=== PATIENT | female | born 1945 | race Hispanic/Latino ===

== ENCOUNTER 2017-12-10 21:18 | Observation (INO) | payer MEDICARE, BC ==
--- NOTE | 2017-12-10 22:17 | ED PDOC ---
Arrival/HPI - General Chief Complaint: Abdominal Pain Time Seen by Provider: 12/10/17 21:41 Historian: Patient - History of Present Illness Narrative History of Present Illness (Text): 12/10/17 22:12 72-year-old female presents today as a transfer from the [facility] emergency room for chest pain and pancreatitis. Patient states he's been having left-sided upper abdominal pain for about a month. Patient states over the past few days the pain seems to have increased. Patient states she's been belching a lot. Patient states today she became nervous because she felt very nauseous as if she was going to vomit. She denies dizziness or weakness. Patient is complaining of a vague pressure like sensation in the chest. She denies urinary symptoms. Denies back pain. Denies fevers or chills. No other complaints Symptom Onset: Gradual Symptom Course: Worsening Quality: Aching, Tightness, Gas Like Severity Level: 3, 5 Past Medical History - Provider Review Nursing Documentation Reviewed: Yes - Travel History Have you recently traveled outside [place] w/in the past 3 mons?: No - Infectious Disease Hx of Infectious Diseases: None - Reproductive Menopause: Yes - HEENT Hx Glaucoma: Yes - Endocrine/Metabolic Hx Diabetes Mellitus Type 2: Yes - Psychiatric Hx Substance Use: No - Anesthesia Hx Anesthesia: No Hx Anesthesia Reactions: No Family/Social History - Physician Review Nursing Documentation Reviewed: Yes Family/Social History: Unknown Family HX Smoking Status: Unknown If Ever Smoked Hx Alcohol Use: No Hx Substance Use: No Allergies/Home Meds Allergies/Adverse Reactions: Allergies No Known Allergies Allergy (Verified 12/10/17 21:38) Home Medications: Home Meds Medication Instructions Recorded Confirmed Aspirin [Ecotrin] 81 mg PO DAILY 12/10/17 12/10/17 Brimonidine Tartrate [Alphagan P 5 ml OD DAILY 12/10/17 12/10/17 0.1 % Ophth] Brimonidine Tartrate/Timolol 10 ml OD DAILY 12/10/17 12/10/17 [Combigan 0.2%-0.5% Eye Drops] Cholecalciferol (Vitamin D3) 1 tab PO DAILY 12/10/17 12/10/17 [Vitamin D3] Colesevelam HCl [Welchol] 625 mg PO BID 12/10/17 12/10/17 Esomeprazole Magnesium [Nexium 20 mg PO DAILY 12/10/17 12/10/17 24Hr] Ezetimibe [Ezetimibe] 10 mg PO DAILY 12/10/17 12/10/17 Glyburide/Metformin HCl 1 tab PO BID 12/10/17 12/10/17 [Glyburide-Metformin 5-500 mg] Latanoprost [Xalatan] 2.5 ml EACHEYE DAILY 12/10/17 12/10/17 Levothyroxine [Synthroid] 25 mg PO DAILY 12/10/17 12/10/17 Olmesartan [BenicarNf] 20 mg PO DAILY 12/10/17 12/10/17 l-Mefol/A-Cyst/Meb12/Algal Oil 1 tab PO DAILY 12/10/17 12/10/17 [Cerefolin Nac Caplet] Review of Systems - Review of Systems Constitutional: absent: Fatigue, Fevers ENT: absent: Sore Throat Respiratory: absent: SOB, Cough Cardiovascular: Chest Pain. absent: Palpitations Gastrointestinal: Abdominal Pain, Nausea. absent: Constipation, Diarrhea, Vomiting Genitourinary Female: absent: Dysuria, Frequency, Hematuria Musculoskeletal: absent: Arthralgias, Back Pain, Neck Pain Skin: absent: Rash, Pruritis Neurological: absent: Headache, Dizziness Psychiatric: absent: Anxiety, Depression, Suicidal Ideation Physical Exam Vital Signs Reviewed: Yes Vital Signs Temp Pulse Resp BP Pulse Ox 12/10/17 23:54 70 18 145/70 100 12/10/17 21:23 97.6 F 68 18 138/66 100 Temperature: Afebrile Blood Pressure: Normal Pulse: Regular Respiratory Rate: Normal Appearance: Positive for: Well-Appearing, Non-Toxic, Comfortable Pain Distress: None Mental Status: Positive for: Alert and Oriented X 3 - Systems Exam Head: Present: Atraumatic Mouth: Present: Moist Mucous Membranes Neck: Present: Normal Range of Motion Respiratory/Chest: Present: Clear to Auscultation, Good Air Exchange. No: Respiratory Distress, Accessory Muscle Use Cardiovascular: Present: Regular Rate and Rhythm, Normal S1, S2. No: Murmurs Abdomen: Present: Tenderness (+ epigastric and LUQ tenderness, minimal llq tenderness), Normal Bowel Sounds. No: Distention, Peritoneal Signs, Rebound, Guarding, McBurney's Point Tender Back: Present: Normal Inspection. No: CVA Tenderness, Midline Tenderness, Paraspinal Tenderness Upper Extremity: Present: Normal ROM Lower Extremity: Present: Normal ROM Neurological: Present: GCS=15 Skin: Present: Warm, Dry, Normal Color. No: Rashes Psychiatric: Present: Alert, Oriented x 3 Medical Decision Making ED Course and Treatment: 12/10/17 22:20 Patient is nontoxic well appearing with stable vitals. pt transferred from [facility]. CBC wnl CMP wnl Amylase wnl Lipase 281 trop: 0.01 Urinalysis: trace leukocytes CAT scan: FINDINGS: Questionable trace prominence of the intrahepatic biliary ducts. Correlate with laboratory values if clinically indicated. The spleen is normal. The pancreas is normal. No gallstones. There is a 1.5 cm low-attenuation lesion in the upper right kidney with Hounsfield units slightly greater than expected for a simple cyst. Short term followup ultrasound is recommended to assess for stability assuming there are no priors. Punctate low attenuation upper pole left kidney. Bilateral adrenal gland thickening with areas of low attenuation possible adenomas. Definitive characterization could be performed with MRI if not done previously. Small hiatal hernia. The right colon is distended with stool consistent with constipation. A normal appendix is identified [id number], coronal images 45 - 63. No aortic aneurysm or dissection. Asymmetry of breast tissue, more prominent on the left. Recommend correlation with mammography. Grade 1 spondylolisthesis L4-5. IMPRESSION: Right-sided constipation. Non acute findings as described in the body of the report. Patient reassessment: pt is non toxic well appearing; resting comfortably in er ; pt had LIpase of 761 at [facility], repeat lipase 281 pt given pepcid IV and asa 244 po as she was given 81mg in ER. Discussed all results with patient in depth dr. falk discussed case with dr. davidson; will admit observational status to tele for chest pain and abdominal pain. will consult dr. walton and dr. valenzuela. Impression: chest pain, abdominal pain admit tele obs. - Lab Interpretations Lab Results: 12/10/17 22:04 12/10/17 22:04 Lab Results 12/10/17 22:58: Urine Color Straw, Urine Appearance Clear, Urine pH 6.5, Ur Specific [place] <= 1.005, Urine Protein Negative, Urine Glucose (UA) Negative, Urine Ketones Negative, Urine Blood Negative, Urine Nitrate Negative, Urine Bilirubin Negative, Urine Urobilinogen 0.2, Ur Leukocyte Esterase Trace H, Urine RBC 0 - 2, Urine WBC 0 - 2, Ur Epithelial Cells 0 - 2 12/10/17 22:26: pO2 71 H, VBG pH 7.38, VBG pCO2 47.0, VBG HCO3 27.8, VBG Total CO2 29.2 H, VBG O2 Sat (Calc) 97.6 H, VBG Base Excess 2.0, VBG Potassium 3.6, Glucose 81, Lactate 0.6 L, FiO2 21.0, Sodium 138.0, Chloride 108.0 H, Venous Blood Potassium 3.6 12/10/17 22:04: WBC 8.8 D, RBC 4.01, Hgb 11.3 L, Hct 34.4 L, MCV 85.8, MCH 28.2 , MCHC 32.8, RDW 13.0, Plt Count 284, MPV 9.1, Gran % 69.6 H, Lymph % (Auto) 21.6 L, [place] % (Auto) 7.6 H, Eos % (Auto) 1.0 L, Baso % (Auto) 0.2, Gran # 6.15 , Lymph # (Auto) 1.9, [place] # (Auto) 0.7 H, Eos # (Auto) 0.1, Baso # (Auto) 0.02 12/10/17 22:04: Sodium 140, Potassium 3.9, Chloride 105, Carbon Dioxide 27, Anion Gap 12, BUN 15, Creatinine 0.7, Est GFR ( Amer) > 60, Est GFR (Non- Af Amer) > 60, Random Glucose 79, Calcium 9.7, Total Bilirubin 1.0, AST 36, ALT 39, Alkaline Phosphatase 38, Lactate Dehydrogenase 571, Total Creatine Kinase 689 H, CK-MB (CK-2) 4.5 H, CK-MB (CK-2) % Cancelled, Troponin I < 0.01, Total Protein 6.9, Albumin 4.1, Globulin 2.9, Albumin/Globulin Ratio 1.4, Amylase 145 H, Lipase 218 - RAD Interpretation Radiology Orders: 12/10/17 22:18 ABD & PELVIS IV CONTRAST ONLY [CT] Stat - Medication Orders Current Medication Orders: Discontinued Medications Aspirin (Aspirin Chewable) 244 mg PO STAT STA Stop: 12/11/17 01:09 Last Admin: 12/11/17 01:29 Dose: 244 mg Famotidine (Pepcid) 20 mg IVP STAT STA Stop: 12/11/17 01:10 Last Admin: 12/11/17 01:28 Dose: 20 mg IVP Administration Document 12/11/17 01:28 KEL (Rec: 12/11/17 01:28 KEL [id number]) Charges for Administration # of IVP Administrations 1 Disposition/Present on Arrival - Present on Arrival Any Indicators Present on Arrival: No History of DVT/PE: No History of Uncontrolled Diabetes: No Urinary Catheter: No History of Decub. Ulcer: No History Surgical Site Infection Following: None - Disposition Have Diagnosis and Disposition been Completed?: Yes Diagnosis: Chest pain, Abdominal pain Disposition: HOSPITALIZED Disposition Time: 00:59 Patient Plan: Observation, Telemetry Patient Problems: Current Active Problems Problem Status Onset Abdominal pain Acute Chest pain Acute Condition: FAIR
[2017-12-10 22:23] LABS: BASO # 0.02 K/mm3 (0.0-2.0); BASO % 0.2 % (0.0-3.0); EOS # 0.1 (0.0-0.7); GRAN # 6.15 (1.4-6.5); GRAN % 69.6 % (50.0-68.0); HEMOGLOBIN 11.3 g/dL (12.0-16.0); LYMPH # 1.9 (1.2-3.4); LYMPH % 21.6 % (22.0-35.0); MEAN CELL VOLUME 85.8 fl (80.0-105.0); MEAN CORPUSCULAR HEMOGLOBIN 28.2 pg (25.0-35.0); MEAN CORPUSCULAR HGB CONC 32.8 g/dl (31.0-37.0); MEAN PLATELET VOLUME 9.1 fl (7.0-11.0); MONO # 0.7 (0.1-0.6); MONO % 7.6 % (1.0-6.0); RBC 4.01 10^6/uL (3.5-6.1); WHITE BLOOD COUNT 8.8 10^3/ul (4.5-11.0)
[2017-12-10 22:28] LABS: ALB/GLOB RATIO 1.4 (1.1-1.8); ALBUMIN 4.1 g/dL (3.0-4.8); ALT/SGPT 39 U/L (7-56); AMYLASE 145 U/L (35-125); AST/SGOT 36 U/L (14-36); BLOOD UREA NITROGEN 15 mg/dL (7-21); CALCIUM 9.7 mg/dL (8.4-10.5); GFR AFRICAN-AMERICAN > 60; GFR NON-AFRICAN AMERICAN > 60; LIPASE 218 U/L (23-300)
[2017-12-10 22:39] LABS: TROPONIN I < 0.01 ng/mL
[2017-12-10 22:45] LABS: VENOUS BLOOD GAS PO2 71 mm/Hg (30-55); VENOUS BLOOD PH 7.38 (7.32-7.43)
[2017-12-10 22:55] LABS: CK-MB 4.5 ng/mL (0.0-3.6)
[2017-12-10] MEDS ORDERED: Iohexol 350 MG/100 ML VIAL ONE (22:57)
[2017-12-10 23:13] LABS: PH,URINE 6.5 (4.7-8.0); URINE BILIRUBIN NEGATIVE (NEGATIVE); URINE BLOOD NEGATIVE (NEGATIVE); URINE GLUCOSE (UA) NEGATIVE (NEGATIVE); URINE LEUKOCYTE ESTERASE TRACE Leu/uL (NEGATIVE); URINE PROTEIN NEGATIVE mg/dL (<30 mg/dL); URINE UROBILINOGEN 0.2 E.U./dL (<1 E.U./dL)
[2017-12-10 23:15] LABS: URINE APPEARANCE CLEAR (CLEAR); URINE COLOR STRAW (YELLOW)
[2017-12-10 23:26] LABS: URINE EPITHELIAL CELLS 0 - 2 /hpf (0-5); URINE RBC 0 - 2 /hpf (0-2); URINE WBC 0 - 2 /hpf (0-6)
--- NOTE | 2017-12-11 00:18 | CT ---
EXAM: CT Abdomen and Pelvis With Intravenous Contrast EXAM DATE/TIME: 12/10/2017 10:18 PM CLINICAL HISTORY: 72 years old, female; Pain; Abdominal pain; Localized; Lower; Additional info: Abd pain TECHNIQUE: Axial computed tomography images of the abdomen and pelvis with intravenous contrast. All CT scans at this facility use one or more dose reduction techniques, viz.: automated exposure control; ma/kV adjustment per patient size (including targeted exams where dose is matched to indication; i.e. head); or iterative reconstruction technique. Coronal and sagittal reformatted images were created and reviewed. CONTRAST: 96 mL of administered intravenously. COMPARISON: No relevant prior studies available. FINDINGS: Questionable trace prominence of the intrahepatic biliary ducts. Correlate with laboratory values if clinically indicated. The spleen is normal. The pancreas is normal. No gallstones. There is a 1.5 cm low-attenuation lesion in the upper right kidney with Hounsfield units slightly greater than expected for a simple cyst. Short term followup ultrasound is recommended to assess for stability assuming there are no priors. Punctate low attenuation upper pole left kidney. Bilateral adrenal gland thickening with areas of low attenuation possible adenomas. Definitive characterization could be performed with MRI if not done previously. Small hiatal hernia. The right colon is distended with stool consistent with constipation. A normal appendix is identified [id number], coronal images 45 - 63. No aortic aneurysm or dissection. Asymmetry of breast tissue, more prominent on the left. Recommend correlation with mammography. Grade 1 spondylolisthesis L4-5. IMPRESSION: Right-sided constipation. Non acute findings as described in the body of the report.
[2017-12-11] MEDS: Levothyroxine 25 MCG TAB PO SCH (06:51)
[2017-12-11 08:13] LABS: ALB/GLOB RATIO 1.4 (1.1-1.8); ALBUMIN 3.8 g/dL (3.0-4.8); ALT/SGPT 42 U/L (7-56); AMYLASE 98 U/L (35-125); AST/SGOT 55 U/L (14-36); BLOOD UREA NITROGEN 13 mg/dL (7-21); CALCIUM 9.3 mg/dL (8.4-10.5); GFR AFRICAN-AMERICAN > 60; GFR NON-AFRICAN AMERICAN > 60; LIPASE 108 U/L (23-300)
[2017-12-11 09:38] LABS: TROPONIN I < 0.01 ng/mL
[2017-12-11] MEDS ORDERED: TIMOLOL OD SCH ×2 (10:00→12:41)
[2017-12-11] MEDS ORDERED: BRIMONIDINE TARTRATE OD SCH ×2 (10:00→12:41)
[2017-12-11 10:42] LABS: CK MB% 0.1 % (2.5-3.0); CK-MB 5.8 ng/mL (0.0-3.6)
[2017-12-11] MEDS: POLYETHYLENE GLYCOL 3350 17 GM/Dose PACKET PO SCH ×2 (12:08→17:49)
[2017-12-11] MEDS: BRIMONIDINE TARTRATE OD SCH (13:35)
--- NOTE | 2017-12-11 15:32 | HP ---
PHYSICAL EXAMINATION: VITAL SIGNS: Temperature is 98, pulse of 69, blood pressure 108/50, respirations 19, and O2 saturation 97%. GENERAL: The patient lying in bed, uncomfortable, and in no acute distress. HEENT: Atraumatic and normocephalic. Anicteric sclerae. Moist mucosa. [place] conjunctivae. No oral lesions. NECK: No JVD, anterior and posterior adenopathy, thyromegaly, or bruits. CARDIOVASCULAR: S1 and S2 regular. No murmur, rubs, or gallop. LUNGS: Clear to auscultation bilaterally. No wheezes, rales, or rhonchi. ABDOMEN: Bowel sounds are positive. Soft, nontender and nondistended. No hepatosplenomegaly. No rebound and no guarding EXTREMITIES: No cyanosis, clubbing, or edema. NEUROLOGIC: No facial asymmetry. Tongue is midline. No uvula deviation. Power is 5/5 upper extremity and lower extremity. Sensation intact in upper extremity and lower extremity. PSYCHIATRIC: She is awake, alert and oriented x3. No anxiety or depression. She has normal affect. GENITOURINARY: No CVA tenderness. VASCULAR: 2+ pulses in the carotid pulses and pedal pulses. SKIN: No erythema or nodules SPINE: Shows normal curvature. LABORATORY DATA: White count of 8.8, hemoglobin is 11.3, and platelet count is 284. She has an VBG shows a pH of 7.38 with a PaO2 of 71, pCO2 of 47. Chemistry shows sodium 140, potassium 3.9. Creatinine 0.7. The patient has an albumin of 4.1, lipase is 218. Urine shows blood is negative, nitrites are negative, bilirubin is negative. CT of the abdomen done shows right-sided constipation, no acute findings. ASSESSMENT: 1. Pancreatitis. 2. Constipation. 3. Right 1.5 cm kidney lesion, possibly cyst. 4. Diabetes type 2. 5. Hypertension. PLAN: The patient is currently comfortable. She did have an elevated lipase in the [facility]. The patient was given IV Pepcid. Repeat lipase is improved. The patient's initial lipase was 761. The patient is going to continue with aspirin. She is going to continue with her eyedrops. She is on Zetia for her dyslipidemia. She is currently n.p.o. I will advance her diet to a liquid diet to see if she can tolerate. I will also get evaluation by Dr. Saunders and also cardiac evaluation by Dr. Smith. The patient's initial troponin was negative. Repeat troponin has been ordered. Pepe Brian MD
--- NOTE | 2017-12-11 17:50 | CARD ---
APPROVED REPORT EKG Measurement Heart [id number] <Conclusion> Normal sinus rhythm Normal ECG
--- NOTE | 2017-12-11 19:01 | CON ---
DATE: 12/11/2017 INDICATIONS: Abdominal, midepigastric and chest pain. HISTORY OF PRESENT ILLNESS: This is a 72-year-old woman who was admitted to the emergency room after she initially presented at the [facility] Emergency Room with midepigastric pain, chest pain, abdominal pain. Some symptoms have been present for several weeks to a month, they were getting worse. There was increased nausea, and belching. She felt as if she would vomit. She came to the emergency room for evaluation. She does not describe exertional chest pain. There is some shortness of breath at times. There was no orthopnea, PND, syncope, presyncope, lightheadedness, dizziness, vertigo, palpitation, edema, claudication, fever, chills, rigors, sweats, cough, sputum production, hemoptysis, constipation or melena. PAST MEDICAL HISTORY: Notable for diabetes, hyperlipidemia, glaucoma, cataracts, hypothyroidism, but no rheumatic fever, myocardial infarction, angina, congestive heart failure, arrhythmia, stroke, TIA, hypertension or gout. MEDICATIONS: At the time of admission include Alphagan, brimonidine eye drops, vitamin D, WelChol, Nexium, Zetia, glyburide and metformin, Xalatan, Synthroid, olmesartan. ALLERGIES: THERE ARE NO KNOWN MEDICATION ALLERGIES. SOCIAL HISTORY: She lives at home. She does not currently smoke. She does not drink alcohol. FAMILY HISTORY: Noncontributory. REVIEW OF SYSTEMS: A 10-point review of systems otherwise unremarkable except as noted above. PHYSICAL EXAMINATION: GENERAL: She is a well-developed woman, lying in bed on telemetry, no acute distress. VITAL SIGNS: Unremarkable. She is in sinus rhythm 69 beats per minute. Afebrile, 108/50, respirations 18 to 19, O2 sat 97 to 100% on room air. HEENT: Reveals no neck vein distention, thyromegaly, carotid bruit. Mucous membranes moist. Conjunctivae pink. NECK: Supple. HEART: Reveal normal first and second heart sounds. LUNGS: Lung dia clear. ABDOMEN: Soft, bowel sounds present. No mass, organomegaly, tenderness, rebound, guarding, CVA tenderness, no palpable abdominal aortic aneurysm. EXTREMITIES: Reveal no cyanosis, clubbing, or edema. NEUROLOGICAL: Awake, alert, and oriented. PSYCHIATRIC: Normal as to mood and affect. SKIN: Warm and dry. No rash or cellulitis. LABORATORY AND IMAGING: EKG demonstrates regular sinus rhythm, right ventricular conduction delay, leftward axis, mild nonspecific ST-wave changes. A PA and lateral chest film is not yet interpreted, no evidence of congestive heart failure, infiltrate or effusion by my reading. Normal cardiac silhouette by my reading. Abdominal and pelvis CT scan noted, no acute findings, etc. Hemoglobin 11.3, hematocrit 34.4, white blood cell count normal, platelet count normal. Blood gas is noted. Electrolytes: BUN, creatinine, blood sugar unremarkable. LFTs unremarkable. CK elevated at 689. Troponin less than 0.01, amylase 145, repeat 98, lipase 218, repeat 108. Urinalysis unremarkable. IMPRESSION: Dulce Torres is a 72-year-old woman with midepigastric and chest discomfort, belching, nausea, and symptoms which have been present for almost a month. We will get serial EKG's and enzymes to rule out myocardial infarction. I will repeat her EKG and order an echocardiogram. She will have a GI evaluation probably to include upper endoscopy. We will continue her usual medications; she is getting aspirin, Pepcid, Synthroid, Zetia. We will check stool for occult blood. She can be out of bed to a chair. I will follow along with you. I will make additional recommendations based on her clinical course. If no GI cause or symptoms is determined, a nuclear stress test perhaps on an outpatient basis will be advisable. Magdi Smith MD [facility]
[2017-12-11] MEDS ORDERED: Latanoprost 2.5 ml Opht Soln OD SCH (22:00)
[2017-12-11] MEDS ORDERED: Sodium Chloride 0.45% 1,000 ML IV SCH (23:00)
--- NOTE | 2017-12-12 02:39 | HP ---
CHIEF COMPLAINT AND HISTORY OF PRESENT ILLNESS: This is a 72-year-old female who is coming into the hospital who was initially seen in [facility] Emergency for epigastric pain and chest pain. I spoke with the ER physician there, and he wanted to bring in the patient to the hospital for further evaluation. The patient states that she has been having this epigastric pain on and off for the past few weeks. She denies any vomiting. She did have nausea. She has no shortness of breath. No headache. No weakness in the arms or the legs. No dysuria or frequency. No nocturia. The patient states that her symptoms are better. She does not have any history of cardiac disease. She states her epigastric pain was 3/10 to 5/10, nothing made the pain better. REVIEW OF SYMPTOMS: All other review of symptoms are within normal limits except what was mentioned. ALLERGIES: NO KNOWN DRUG ALLERGIES. SOCIAL HISTORY: She does not smoke, drink, or use drugs. FAMILY HISTORY: Noncontributory. PAST MEDICAL HISTORY: Dyslipidemia, diabetes type 2, glaucoma. HOME MEDICATIONS: Have been reviewed on the [facility]. Please see the H and P that was dictated earlier for the physical and assessment and plan. Pepe Brian MD
[2017-12-12] MEDS: Levothyroxine 25 MCG TAB PO SCH (05:58)
[2017-12-12 08:06] LABS: ALB/GLOB RATIO 1.4 (1.1-1.8); ALBUMIN 3.9 g/dL (3.0-4.8); ALT/SGPT 53 U/L (7-56); AST/SGOT 76 U/L (14-36); BLOOD UREA NITROGEN 10 mg/dL (7-21); CALCIUM 9.6 mg/dL (8.4-10.5); GFR AFRICAN-AMERICAN > 60; GFR NON-AFRICAN AMERICAN > 60
[2017-12-12 08:08] LABS: TROPONIN I < 0.01 ng/mL
[2017-12-12 09:10] LABS: CK MB% 0.1 % (2.5-3.0); CK-MB 5.8 ng/mL (0.0-3.6)
--- NOTE | 2017-12-12 09:24 | CARD ---
APPROVED REPORT EXAM: Two-dimensional and M-mode echocardiogram with Doppler and color Doppler. Other Information Quality : GoodRhythm : INDICATION Chest Pain 2D DIMENSIONS Left Atrium (2D)3.4 (1.6-4.0cm)IVSd1.3 (0.7-1.1cm) LVDd3.9 (3.9-5.9cm)PWd1.2 (0.7-1.1cm) LVDs2.5 (2.5-4.0cm)FS (%) 35.0 % LVEF (%)65.0 (>50%) M-Mode DIMENSIONS Aortic Root2.00 (2.2-3.7cm)Aortic Cusp Exc.1.40 (1.5-2.0cm) Aortic Valve AoV Peak Nrqkoqat834.0cm/s Mitral Valve MV E Ycxtpuwo69.1cm/sMV A Bltxxzre915.0cm/sE/A ratio0.6 TDI E/Lateral E'0.0E/Medial E'0.0 Tricuspid Valve TR Peak [id number]/sRAP [id number] Peak Gr.17mmHg [id number] LEFT VENTRICLE The left ventricle is normal size. There is normal left ventricular wall thickness. The left ventricular function is normal. The left ventricular ejection fraction is within the normal range. There is normal LV segmental wall motion. RIGHT VENTRICLE The right ventricle is normal size. ATRIA The left atrium size is normal. The right atrium size is normal. The interatrial septum is intact with no evidence for an atrial septal defect. AORTIC VALVE The aortic valve is mildly calcified. MITRAL VALVE The mitral valve is normal in structure. Mitral annular calcification is mild. TRICUSPID VALVE The tricuspid valve is normal in structure. There is mild tricuspid regurgitation. GREAT VESSELS The aortic root is normal in size. PERICARDIAL EFFUSION There is no pericardial effusion. <Conclusion> The left ventricle is normal size. There is normal left ventricular wall thickness. The left ventricular function is normal.
--- NOTE | 2017-12-12 09:40 | US ---
HISTORY: abdominal pain COMPARISON: None. TECHNIQUE: Sonographic evaluation of the abdomen. FINDINGS: LIVER: Measures cm. Normal echogenicity of the liver parenchyma. No mass. No intrahepatic bile duct dilatation. GALLBLADDER: Unremarkable. No gallstones. COMMON BILE DUCT: Measures mm. No stones. No dilatation. PANCREAS: Unremarkable as visualized. No mass. No ductal dilatation. RIGHT KIDNEY: Measures cm. Normal echogenicity. No calculus, mass, or hydronephrosis. 1.7 centimeter right renal cyst. LEFT KIDNEY: Measures cm. Normal echogenicity. No calculus, mass, or hydronephrosis. SPLEEN: Normal in size and contour. No mass. AORTA: No aneurysmal dilatation. IVC: Unremarkable. OTHER FINDINGS: None. IMPRESSION: 1.7 centimeter right renal cyst.
[2017-12-12] MEDS: POLYETHYLENE GLYCOL 3350 17 GM/Dose PACKET PO SCH (09:47)
[2017-12-12] MEDS: BRIMONIDINE TARTRATE OD SCH (09:50)
[2017-12-12] MEDS ORDERED: Sodium Chloride 0.9% 1,000 ML IV SCH (10:45)
--- NOTE | 2017-12-12 11:21 | CON ---
DATE:12/11/2017 REASON FOR CONSULTATION: Abdominal pain, elevated pancreatic enzyme. HISTORY OF PRESENT ILLNESS: This is a 72-year-old patient with past medical history of hypothyroidism, diabetes mellitus, dyslipidemia, and coronary artery disease admitted with an abdominal pain and some chest pain. Patient was also complaining of increased nausea and epigastric discomfort. In the ER, she was found to have mildly elevated pancreatic enzymes, both amylase and lipase levels. Amylase was 145, came down to 98. Lipase remains normal. No further episodes of vomiting in the hospital. Other past medical history, significant as above. History of glaucoma. Patient had an EGD and colonoscopy done about two years ago. On upper GI colonoscopy, she was found to have some polyps in the past and last colonoscopy was negative. She had EGD and colonoscopy in the past She does not remember the details fully clearly. History of glaucoma. ALLERGIES: NO KNOWN DRUG ALLERGIES. SOCIAL HISTORY: She denies smoking. No alcohol. FAMILY HISTORY: Noncontributory. REVIEW OF SYSTEMS: Positive as above. A 10-point review of systems is done and is unremarkable except the patient has episodes of constipation now. PHYSICAL EXAMINATION GENERAL: She is lying in the bed, not in acute distress. VITAL SIGNS: Temperature is 98, blood pressure 145/68, pulse 70, respirations 18, O2 saturation 98%. HEENT: Atraumatic, anicteric. NECK: Supple. HEART: S1 and S2 regular. LUNGS: Bilateral air entry present. ABDOMEN: Soft. There is no mass palpable. No tenderness. EXTREMITIES: No edema. No cyanosis. NEUROLOGIC: Alert, oriented. Moves all the extremities. LABORATORY DATA: Hemoglobin 11.3, hematocrit 34.4, WBC 8.8, platelets 284,000. Chemistry is as mentioned above. The lipase and amylase levels come down to normal. Initially, the amylase was mildly elevated at 145. The significant finding is patient's total CPK was 689 and today, it is 4459. AST is mildly elevated at 35. The patient did have CT scan of the abdomen and pelvis done with IV contrast, which was reviewed; found to have a large amount of fluid in the right side of colon; pancreatic contour appears, otherwise, unremarkable. There is a renal cyst noticed. IMPRESSION 1. This is a 72-year-old patient admitted with an abdominal discomfort, atypical chest pain. Has mildly elevated lipase level, which has come down to normal with CT done without contrast showing pancreatic contour appearing unremarkable. However, there is large amount of fluid present in the right colon. The etiology for nausea and vomiting is unclear. The differential diagnosis include gastroparesis given the patient has a long history of diabetes mellitus for more than 20 years. Patient did have endoscopy more than two years ago. The other differential diagnosis include erosive esophagitis and peptic ulcer disease and less likely, pancreatitis to be considered. 2. Epigastric discomfort, atypical chest pain. The differential diagnosis include acute coronary syndrome and cholelithiasis also to be considered in the differential diagnoses along with it. 3. Constipation. Her last colonoscopy was two years ago. Other comorbidities include diabetes mellitus, glaucoma, dyslipidemia. RECOMMENDATIONS: We would recommend: 1. Ultrasound scan of the abdomen to rule out any cholelithiasis. 2. PPI. 3. Patient does have an elevated CPK. The creatine phosphokinase is significantly elevated. It was 689, now it is 4459. The etiology is unclear. The patient is on zeta, we will hold off. 4. We will start her on IV fluids, half-normal saline at 100 mL per hour. 5. Repeat CPK in the morning. 6. Ultrasound scan of the abdomen. 7. Patient will benefit from elective endoscopic evaluation, Thank you very much for allowing us to participate in the care of the patient. Georgina Saunders MD [facility]
--- NOTE | 2017-12-12 12:41 | CP.PCM.PN ---
Subjective - Date & Time of Evaluation Date of Evaluation: 12/12/17 Time of Evaluation: 10:40 - Subjective Subjective: Seen and examined at the bedside earlier today, chart review. Patient denies chest pain or abdominal pain. Patient did start on MiraLAX yesterday and received second dose this morning no reports of any bowel movement. Patient does report tolerating oral intake no nausea or vomiting. Denies any gas. No reports of acute overnight events. Patient had abdominal ultrasound which did not show any gallstones or CBD dilatation. Found to have a 1.7 cm renal cyst. Patient with no new complaints. No reports of acute overnight events. Objective - Vital Signs/Intake and Output Vital Signs (last 24 hours): Temp Pulse Resp BP Pulse Ox 98 F 89 18 155/68 H 98 12/11/17 17:51 12/11/17 18:00 12/11/17 17:51 12/11/17 17:51 12/11/17 17:51 Intake and Output: 12/12/17 12/12/17 06:59 18:59 Intake Total 480 Balance 480 - Medications Medications: Current Medications Aspirin (Ecotrin) 81 mg PO DAILY ON LICENSE OF [facility] Last Admin: 12/12/17 09:47 Dose: 81 mg Docusate Sodium (Colace) 100 mg PO BID ON LICENSE OF [facility] Last Admin: 12/12/17 09:46 Dose: 100 mg Ezetimibe (Zetia) 10 mg PO DAILY ON LICENSE OF [facility] Last Admin: 12/11/17 12:08 Dose: 10 mg Famotidine (Pepcid) 40 mg PO DAILY ON LICENSE OF [facility] Last Admin: 12/12/17 09:47 Dose: 40 mg Sodium Chloride (Sodium Chloride 0.9%) 1,000 mls @ 100 mls/hr IV .Q10H ON LICENSE OF [facility] Latanoprost (Xalatan Opht) 0 ml OD HS ON LICENSE OF [facility] Levothyroxine Sodium (Synthroid) 25 mcg PO 0600 ON LICENSE OF [facility] Last Admin: 12/12/17 05:58 Dose: 25 mcg Non-Formulary Medication (Brimonidine Tartrate [Alphagan P 0.1 % Ophth]) 0 ml OD DAILY ON LICENSE OF [facility] Last Admin: 12/12/17 09:50 Dose: 0.05 ml (Brimonidine Tartrate/Timolol [ Combigan 0.2%-0.5% Eye Drops] (Home Med ) 0 ml OD DAILY ON LICENSE OF [facility] Last Admin: 12/12/17 09:48 Dose: 0.05 ml Polyethylene Glycol (Miralax) 17 gm PO BID [facility] Last Admin: 12/12/17 09:47 Dose: 17 gm - Labs Labs: 12/12/17 06:00 - Constitutional Appears: No Acute Distress - Eye Exam Eye Exam: Normal appearance. absent: Scleral icterus - ENT Exam ENT Exam: Mucous Membranes Moist - Respiratory Exam Respiratory Exam: NORMAL BREATHING PATTERN. absent: Respiratory Distress - Cardiovascular Exam Cardiovascular Exam: +S1, +S2 - GI/Abdominal Exam GI & Abdominal Exam: Soft, Normal Bowel Sounds. absent: Guarding, Tenderness, Rebound - Extremities Exam Extremities Exam: absent: Calf Tenderness, Pedal Edema - Neurological Exam Neurological Exam: Alert, Awake, Oriented x3 - Skin Skin Exam: Dry, Warm Assessment and Plan - Assessment and Plan (Free Text) Assessment: ASSESSMENT: Atypical chest pain/Epigastric apin, abdominal US no GB stone Constipation Elevated CPK, patient reports H/O elevated CPK, with workup but unknown etiology , no recent fall, last exercise was last week per patient DM Glucoma PLAN: continue Miralax/colace diet as tolerated continue Gi prophylaxsis monitor LFT will be started on IVF discuss w/ patient would benefit from elective EGD. Seen and discussed w/ Dr. Saunders.
[2017-12-12 13:12] VITALS: BP 113/62; RESP 20; TEMP 98.5
[2017-12-12 16:23] VITALS: O2SAT 99
[2017-12-12 16:25] VITALS: PULSE 75
--- NOTE | 2017-12-12 17:29 | CARD ---
APPROVED REPORT EKG Measurement Heart [id number] <Conclusion> Normal sinus rhythm Normal ECG
--- NOTE | 2017-12-13 00:57 | DS ---
SUBJECTIVE: Patient has no complaints of any chest pain, shortness of breath, or headaches. She was admitted to the hospital after she was found to have epigastric pain and elevated lipase. Patient states she has felt better. Patient may need outpatient stress test. She has no complaints of any headaches or dizziness. PHYSICAL EXAMINATION: VITAL SIGNS: Temperature is 98, pulse is 70, blood pressure 155/68, respirations 18. GENERAL: The patient is lying in bed, flat, comfortable. HEENT: No oral lesion. Anicteric sclerae. Moist mucosa. NECK: No JVD, adenopathy, or thyromegaly. CARDIOVASCULAR: S1 and S2, regular. No murmurs, rubs, or gallops. LUNGS: Clear to auscultation bilaterally. No wheeze, rales, or rhonchi. ABDOMEN: Bowel sounds are positive, soft, nontender and nondistended. EXTREMITIES: No cyanosis, clubbing, or edema. LABORATORY DATA: The patient's troponin x2 has been negative. ASSESSMENT: 1. Pancreatitis, resolved. 2. Constipation. 3. Right 1.5-cm kidney lesion, probable cyst. 4. Diabetes type 2. 5. Hypertension. PLAN: The patient is currently comfortable. She wants to continue with Colace for constipation. She is on IV fluids. She is on the liquid diet. I will advance her diet to see if she can tolerate. The patient is continuing on the Pepcid. She is on Synthroid for hypothyroidism. She is on MiraLax for constipation. She is on her eyedrops. We will advance her diet to see if she tolerates it. If she is able to tolerate, patient will be discharged home. The patient is advised about follow up for her right renal cyst, probable cyst that is 1.5 cm, with Dr. Tavares to repeat imaging studies. She does understand that she needs to follow up for this. I advised her the importance of followup to make sure that there is nothing dangerous. She does understand. CONDITION: Stable. ACTIVITY: Increase as tolerated. She was advised to come back to the hospital if condition is worse. Pepe Brian MD [facility] # [id number]
== END 2017-12-12 16:45 | disposition home or self-care (01) ==
LOC: ED 21:18 → ERH 12-11 00:53 → 3RSO 12-11 02:55
PROVIDERS: ADMIT Internal Medicine Nephrology; ATTEND Internal Medicine Nephrology
DX: K85.90 Acute pancreatitis without necrosis or infection, unspecified (principal); K59.00 Constipation, unspecified; K31.84 Gastroparesis; E11.43 Type 2 diabetes mellitus with diabetic autonomic (poly)neuropathy; I10 Essential (primary) hypertension; E03.9 Hypothyroidism, unspecified; N28.1 Cyst of kidney, acquired; E78.5 Hyperlipidemia, unspecified; I25.10 Atherosclerotic heart disease of native coronary artery without angina pectoris; H40.9 Unspecified glaucoma
CPT/HCPCS: 36415; 74177; 76700; 80053; 81001; 82150; 82550; 82553; 82803; 82948; 83615; 83690; 84484; 85025; 87086; 93005; 93306; 96374; 99285; G0378; J7030; Q9967